=== PATIENT | female | born 1955 | race Caucasian/White ===

== ENCOUNTER 2024-03-02 13:27 | Day surgery (SDC) | payer MEDICARE, OTHER ==
[2024-03-02] MEDS ORDERED: DIPRIVAN 200 MG/20 ML IV ONE (14:25)
[2024-03-02] MEDS ORDERED: Lactated Ringers 1,000 ML IV ONE (15:02)
== END 2024-03-02 15:14 | disposition home or self-care (01) ==
LOC: SDC-PAIN 13:27
PROVIDERS: ATTEND Psychiatry & Neurology Pain Medicine
DX: Z53.8 Procedure and treatment not carried out for other reasons (principal)
CPT/HCPCS: J2704

== ENCOUNTER 2024-03-30 12:06 | Day surgery (SDC) | payer MEDICARE, OTHER ==
[~2024-03-30 12:06] MED LIST: DIPRIVAN 200 MG/20 ML IV ONE
[2024-03-30] MEDS ORDERED: Xylocaine-Mpf 2% 5 Ml Vial IJ ONE (12:07)
[2024-03-30] MEDS ORDERED: LIDOCAINE HCL 1% AMPUL 5 ML IJ ONE (12:07)
[2024-03-30] MEDS ORDERED: Depo-Medrol 40 MG/ML IM ONE (12:07)
[2024-03-30] MEDS ORDERED: Versed 2 MG/2 ML Injection ONE (13:43)
[2024-03-30] MEDS ORDERED: Lactated Ringers 1,000 ML IV ONE (14:36)
--- NOTE | 2024-03-30 15:15 | XRAY ---
Indication: Bilateral L4-S1 MBB. Intraoperative fluoroscopy provided for 37 seconds. 2 digital spot image submitted for interpretation demonstrates posterior needle tips projecting over the expected left and right L4-S1 nerve roots. Correlate with intraoperative findings/report.
--- NOTE | 2024-03-30 15:31 | XRAY ---
37 seconds of fluoroscopy was used in surgery for a bilateral L4-S1 MBB.
== END 2024-03-30 14:34 | disposition home or self-care (01) ==
LOC: SDC-PAIN 12:06
PROVIDERS: ATTEND Psychiatry & Neurology Pain Medicine
DX: M47.816 Spondylosis without myelopathy or radiculopathy, lumbar region (principal)
CPT/HCPCS: 64493; 64494; 72020; 77002; J2250; J2704

== ENCOUNTER 2024-05-05 10:38 | Day surgery (SDC) | payer MEDICARE, OTHER ==
[2024-05-05] MEDS ORDERED: Depo-Medrol 40 MG/ML IM ONE (10:39)
[2024-05-05] MEDS ORDERED: BUPIVACAINE 0.5% VIAL IJ ONE (10:39)
[2024-05-05] MEDS ORDERED: LIDOCAINE HCL 1% AMPUL 5 ML IJ ONE (10:39)
[2024-05-05] MEDS ORDERED: Versed 2 MG/2 ML Injection ONE (11:37)
--- NOTE | 2024-05-05 12:56 | XRAY ---
Indication: Bilateral L4-S1 MBB. Intraoperative fluoroscopy provided for 36 seconds. 2 digital spot image submitted for interpretation demonstrates posterior needle tips projecting over the expected left and right L4-S1 nerve roots. Correlate with intraoperative findings/report.
--- NOTE | 2024-05-05 13:07 | XRAY ---
36 seconds of fluoroscopy was used in surgery for a bilateral L4-S1 MBB.
== END 2024-05-05 12:21 | disposition home or self-care (01) ==
LOC: SDC-PAIN 10:38
PROVIDERS: ATTEND Psychiatry & Neurology Pain Medicine
DX: M47.816 Spondylosis without myelopathy or radiculopathy, lumbar region (principal)
CPT/HCPCS: 64493; 64494; 72020; 77002; J2250

== ENCOUNTER 2024-06-15 11:26 | Day surgery (SDC) | payer MEDICARE, OTHER ==
[2024-06-15] MEDS ORDERED: LIDOCAINE HCL 1% AMPUL 5 ML IJ ONE (11:27)
[2024-06-15] MEDS ORDERED: Depo-Medrol 40 MG/ML IM ONE (11:27)
[2024-06-15] MEDS ORDERED: BUPIVACAINE 0.5% VIAL IJ ONE (11:27)
[2024-06-15] MEDS ORDERED: Versed 2 MG/2 ML Injection ONE (13:23)
--- NOTE | 2024-06-15 15:00 | XRAY ---
Indication: Left L4-S1 RFA. Intraoperative fluoroscopy provided for 48 seconds. 6 digital spot image submitted for interpretation demonstrates posterior needle tips projecting over the expected left L4-S1 nerve roots. Correlate with intraoperative findings/report.
--- NOTE | 2024-06-15 17:05 | XRAY ---
48 seconds of fluoroscopy was used in surgery for a left L4-S1 RFA.
== END 2024-06-15 14:52 | disposition home or self-care (01) ==
LOC: SDC-PAIN 11:26
PROVIDERS: ATTEND Psychiatry & Neurology Pain Medicine
DX: M47.817 Spondylosis without myelopathy or radiculopathy, lumbosacral region (principal)
CPT/HCPCS: 64635; 64636; 72100; 77002; J2250

== ENCOUNTER 2024-06-16 11:50 | Day surgery (SDC) | payer MEDICARE, OTHER ==
[2024-06-16] MEDS ORDERED: LIDOCAINE HCL 1% AMPUL 5 ML IJ ONE (11:51)
[2024-06-16] MEDS ORDERED: BUPIVACAINE 0.5% VIAL IJ ONE (11:51)
[2024-06-16] MEDS ORDERED: Depo-Medrol 40 MG/ML IM ONE (11:51)
[2024-06-16] MEDS ORDERED: Versed 2 MG/2 ML Injection ONE (13:38)
--- NOTE | 2024-06-16 16:50 | XRAY ---
Indication: Right L4-S1 RFA. Intraoperative fluoroscopy provided for 37 seconds. 3 digital spot image submitted for interpretation demonstrates posterior needle tips projecting over expected right L4-S1 nerve roots. Correlate with intraoperative findings/report.
--- NOTE | 2024-06-16 16:54 | XRAY ---
37 seconds of fluoroscopy was used in surgery for a right L4-S1 RFA.
== END 2024-06-16 14:48 | disposition home or self-care (01) ==
LOC: SDC-PAIN 11:50
PROVIDERS: ATTEND Psychiatry & Neurology Pain Medicine
DX: M47.816 Spondylosis without myelopathy or radiculopathy, lumbar region (principal)
CPT/HCPCS: 64635; 64636; 72100; 77002; J2250